=== PATIENT | female | born 1945 | race Caucasian/White ===

== ENCOUNTER 2024-06-16 12:02 | Day surgery (SDC) | payer MEDICARE, SELFPAY ==
--- NOTE | 2024-06-16 12:16 | US_ITS ---
[address] [address] Patient Name: SHEA CONNOLLY MRN: [id number] date: 1945 Sex: F Assigned Patient Location: US Current Patient Location: US Accession/Order Number: [id number] Exam Date: 06/16/2024 12:17 Report Date: 06/16/2024 14:05 At the request of: PENNY OROZCO Procedure: US biopsy thyroid EXAMINATION: US biopsy thyroid HISTORY: Thyroid Nodule COMPARISON: Ultrasound thyroid from outside institution 05/19/2024 TECHNIQUE: After obtaining informed consent, ultrasound-guided fine needle aspiration was performed in the usual sterile manner. FINDINGS: IMAGING: Ultrasound. BIOPSY NEEDLE: 25-gauge; 3 separate passes LOCATION: Mid and lower pole of left lobe. SPECIMEN TYPE: Cellular tissue. LOCAL ANESTHETIC: Buffered Xylocaine. COMPLICATIONS: None. LABORATORY: Prepared slide smears and washings for cell block evaluation. OTHER: Negative. PATHOLOGY: Pending. An addendum will be added when results are available. US/US biopsy thyroid IMPRESSION: 1. Uneventful ultrasound guided fine needle aspiration (FNA). 2. Pathology results are pending. 3. The left lobe is very heterogeneous without any clearly definable nodules on today's study. Comparison was made to prior study. Tissue sampling of multiple areas within the mid and lower lobe was performed in the region of the requested nodule sampling. Electronically authenticated by: JASON CHARLTON Date: 06/16/2024 14:05
[2024-06-16 12:45] VITALS: BP 178/102; PULSE 76; O2SAT 96
[2024-06-16] MEDS: LIDOCAINE HCL 10 ML, SODIUM BICARBONATE 1 MEQ INJ (13:25)
--- NOTE | 2024-06-16 14:03 | SUR.PREOP ---
06/01/24 Per Sommer instructed pt on procedure, date, time, and prep. Spoke with Dr Myla ying to approve holding Eliquis for 3 days prior to procedure and pt made aware.
== END 2024-06-16 13:45 | disposition home or self-care (01) ==
LOC: US 12:06
PROVIDERS: Radiology Diagnostic Radiology; Family Provider Family Medicine; PCP Family Medicine; Visit Provider Otolaryngology
DX: E04.1 Nontoxic single thyroid nodule (principal)
CPT/HCPCS: 10005; 88173